=== PATIENT | female | born 1990 | race American Indian/Alaskan Native ===

== ENCOUNTER 2017-02-27 10:58 | Emergency (ER) | payer MEDICAID ==
[2017-02-27 10:58] VITALS: BMI 38.1
[2017-02-27 11:07] VITALS: TEMP 98
[2017-02-27 12:09] LABS: RBC URINE < 1 /hpf (0-3); URINE BILIRUBIN NEGATIVE (NEGATIVE); URINE BLOOD NEGATIVE (NEGATIVE); URINE COLOR Straw (YELLOW); URINE GLUCOSE (UA) NORMAL (Normal); URINE KETONE NEGATIVE (NEGATIVE); URINE LEUKOCYTE ESTERASE NEG Leu/uL (Negative); URINE PROTEIN NEGATIVE (NEGATIVE)
--- NOTE | 2017-02-27 12:43 | C.PDOC ---
History Of Present Illness 26 year old female, otherwise well, presents to the ED with complaints of abdominal pain for one week. Patient states when pain began it was constant, dull, cramping abdominal pain that was an 8/10 but has improved to be intermittent episodes at a 4/10 on arrival. Patient states she "feels heavy" in the lower abdomen and LMP was second week of January. Patient is tolerating PO. Patient denies fever, urine incontinence, dysuria, urinary symptoms, or other complaints at this time. Time Seen by Provider: 02/27/17 11:40 Chief Complaint (Nursing): Abdominal Pain History Per: Patient History/Exam Limitations: no limitations Onset/Duration Of Symptoms: Intermittent Episodes Current Symptoms Are (Timing): Still Present Severity: Mild Pain Scale Rating Of: 4 Location Of Pain/Discomfort: Other (lower abdomen ) Radiation Of Pain To:: None Quality Of Discomfort: Dull, Aching, Cramping Associated Symptoms: denies: Fever, Chills, Nausea, Vomiting Exacerbating Factors: None Alleviating Factors: None Recent travel outside of the [place]: No Abnormal Vaginal Bleeding: No Past Medical History Vital Signs: Last Vital Signs Temp 98.0 F 02/27/17 11:04 Pulse 78 02/27/17 12:47 Resp 16 02/27/17 12:47 BP 123/84 02/27/17 12:47 Pulse Ox 98 02/27/17 12:47 - [facility] MANUAL ASSIST BARBARA NEC (07/02/13) - Social History Hx Alcohol Use: No Hx Substance Use: No Review Of Systems Constitutional: Negative for: Fever, Chills Cardiovascular: Negative for: Chest Pain, Palpitations Respiratory: Negative for: Cough, Shortness of Breath Gastrointestinal: Positive for: Abdominal Pain. Negative for: Nausea, Vomiting , Diarrhea Physical Exam - Physical Exam Appears: Non-toxic, No Acute Distress Skin: Warm, Dry, No Rash Head: Atraumatic, Normacephalic, No Tenderness Eye(s): bilateral: Normal Inspection, PERRL, EOMI Oral Mucosa: Moist Neck: Supple Chest: Symmetrical, No Deformity Cardiovascular: Rhythm Regular, No Murmur Respiratory: No Rales, No Rhonchi, No Wheezing, Other (clear to auscultation bilaterally ) Gastrointestinal/Abdominal: Soft, Tenderness (right suprapubic tenderness ), No Guarding, No Rebound, Other (abdomen is bloated) Extremity: Normal ROM, No Tenderness Neurological/Psych: Oriented x3 ED Course And Treatment O2 Sat by Pulse Oximetry: 100 (RA) Pulse Ox Interpretation: Normal Progress Note: UA and UPreg were ordered. Patient was given Tylenol. Disposition Counseled Patient/Family Regarding: Studies Performed, Diagnosis, Need For Followup - Disposition Disposition: HOME/ ROUTINE Disposition Time: 12:42 Condition: STABLE Instructions: (ED) Forms: [facility] (Kazakh), General Discharge Instructions - POA Present On Arrival: None - Clinical Impression Clinical Impression: - Scribe Statement The provider has reviewed the documentation as recorded by the Scribe Raquel Flores All medical record entries made by the Scribe were at my direction and personally dictated by me. I have reviewed the chart and agree that the record accurately reflects my personal performance of the history, physical exam, medical decision making, and the department course for this patient. I have also personally directed, reviewed, and agree with the discharge instructions and disposition.
[2017-02-27 12:48] VITALS: BP 123/84; PULSE 78; RESP 16
[2017-02-27 13:08] VITALS: O2SAT 100
== END 2017-02-27 12:47 | disposition home or self-care (01) ==
LOC: C.ER 10:58
DX: O26.899 Other specified pregnancy related conditions, unspecified trimester (principal); Z3A.00 Weeks of gestation of pregnancy not specified

== ENCOUNTER 2017-04-06 07:28 | Day surgery (SDC) | payer MEDICAID ==
[2017-04-06 07:44] VITALS: BMI 35.9
[2017-04-06 08:14] LABS: BASO # 0.1 K/uL (0.0-0.2); BASO % 1.3 % (0.0-2.0); EOS # 0.2 K/uL (0.0-0.7); EOS % 2.3 % (0.0-4.0); HEMATOCRIT 41.3 % (34.0-47.0); LYMPH # 2.3 K/uL (1.0-4.3); MEAN CELL VOLUME 89.1 fL (81.0-99.0); MEAN CORPUSCULAR HEMOGLOBIN 30.9 pg (27.0-31.0); MEAN CORPUSCULAR HGB CONC 34.7 g/dL (33.0-37.0); MEAN PLATELET VOLUME 9.7 fL (7.2-11.7); MONO # 0.3 K/uL (0.0-0.8); MONO % 4.7 % (0.0-10.0); NRBC % 0.1 % (0.0-2.0); RED CELL DISTRIBUTION WIDTH 12.8 % (11.5-14.5)
--- NOTE | 2017-04-06 08:21 | C.PDOC ---
History Of Present Illness 26 year old female, , 8 weeks , presents to ED for evaluation of intermittent vaginal spotting for the past 2 weeks. Pt reports associated pelvic pain described as cramping. Denies n/v/d, back pain, urinary symptoms, or fever. Time Seen by Provider: 04/06/17 07:38 Chief Complaint (Nursing): Female Genitourinary History Per: Patient History/Exam Limitations: no limitations Onset/Duration Of Symptoms: Days (2 weeks) Current Symptoms Are (Timing): Still Present Quality Of Discomfort: Cramping Associated Symptoms: denies: Fever, Chills, Nausea, Vomiting, Diarrhea, Loss Of Appetite, Back Pain, Chest Pain, Constipation, Urinary Symptoms Alleviating Factors: None Recent travel outside of the [place]: No Additional History Per: Patient : 7 Para: 4 Past Medical History Reviewed: Historical Data, Nursing Documentation, Vital Signs Vital Signs: Last Vital Signs Temp 98.1 F 04/06/17 07:44 Pulse 86 04/06/17 07:44 Resp 20 04/06/17 07:44 BP 110/69 04/06/17 07:44 Pulse Ox 99 04/06/17 07:44 - [facility] MANUAL ASSIST DELIV NEC (07/02/13) Family History: States: Unknown Family Hx - Social History Hx Alcohol Use: No Hx Substance Use: No - Immunization History Hx Tetanus Toxoid Vaccination: Yes Hx Influenza Vaccination: Yes Hx Pneumococcal Vaccination: No Review Of Systems Except As Marked, All Systems Reviewed And Found Negative. Constitutional: Negative for: Fever, Chills Cardiovascular: Negative for: Chest Pain, Palpitations Respiratory: Negative for: Shortness of Breath Gastrointestinal: Negative for: Nausea, Vomiting, Diarrhea, Constipation Genitourinary: Positive for: Vaginal Bleeding (spotting), Pelvic Pain. Negative for: Dysuria, Frequency, Hematuria, Vaginal Discharge Musculoskeletal: Negative for: Back Pain Neurological: Negative for: Headache, Dizziness Physical Exam - Physical Exam Appears: Non-toxic, No Acute Distress Skin: Normal Color, Warm, Dry Head: Atraumatic, Normacephalic Eye(s): bilateral: Normal Inspection Nose: Normal Oral Mucosa: Moist Neck: Normal ROM, Supple Chest: Symmetrical Cardiovascular: Rhythm Regular Respiratory: Normal Breath Sounds, No Rales, No Rhonchi, No Wheezing Gastrointestinal/Abdominal: Soft, Tenderness (suprapubic), No Guarding, No Rebound Back: No CVA Tenderness Extremity: Normal ROM Neurological/Psych: Oriented x3, Normal Speech ED Course And Treatment - Laboratory Results Result Diagrams: 04/06/17 08:06 O2 Sat by Pulse Oximetry: 99 (RA) Pulse Ox Interpretation: Normal Progress Note: Blood work ordered and reviewed. Case discussed with Dr. Iraheta, patient's OBGYN, who requests admission. Disposition - Disposition Disposition: HOSPITALIZED - PA / WAFER SLICER / Resident Statement MD/DO has reviewed & agrees with the documentation as recorded. - Scribe Statement The provider has reviewed the documentation as recorded by the Scribe Patsy Plata All medical record entries made by the Anatoliyibshira were at my direction and personally dictated by me. I have reviewed the chart and agree that the record accurately reflects my personal performance of the history, physical exam, medical decision making, and the department course for this patient. I have also personally directed, reviewed, and agree with the discharge instructions and disposition.
--- NOTE | 2017-04-06 08:27 | C.PDOC ---
History Of Present Illness 26 year old female, , lmp 9/4, presents to ED for evaluation of intermittent vaginal spotting for the past 2 weeks. Pt reports associated pelvic pain described as cramping since termination on 03/16/17 . Denies n/v/d, back pain, urinary symptoms, or fever. Time Seen by Provider: 04/06/17 07:38 Chief Complaint (Nursing): Female Genitourinary History Per: Patient History/Exam Limitations: no limitations Onset/Duration Of Symptoms: Days (2 weeks) Current Symptoms Are (Timing): Still Present Quality Of Discomfort: Cramping Associated Symptoms: denies: Fever, Chills, Nausea, Vomiting, Diarrhea, Loss Of Appetite, Back Pain, Chest Pain, Constipation, Urinary Symptoms Alleviating Factors: None Recent travel outside of the [place]: No Additional History Per: Patient : 7 Para: 4 Past Medical History Reviewed: Historical Data, Nursing Documentation, Vital Signs Vital Signs: Last Vital Signs Temp 97.8 F 04/06/17 14:13 Pulse 68 04/06/17 14:13 Resp 16 04/06/17 14:13 BP 62/63 L 04/06/17 14:13 Pulse Ox 97 04/06/17 14:13 - [facility] MANUAL ASSIST DELIV NEC (07/02/13) Family History: States: Unknown Family Hx - Social History Hx Alcohol Use: No Hx Substance Use: No - Immunization History Hx Tetanus Toxoid Vaccination: Yes Hx Influenza Vaccination: Yes Hx Pneumococcal Vaccination: No Review Of Systems Except As Marked, All Systems Reviewed And Found Negative. Constitutional: Negative for: Fever, Chills Gastrointestinal: Positive for: Abdominal Pain. Negative for: Nausea, Vomiting , Diarrhea, Constipation Genitourinary: Positive for: Vaginal Bleeding (spotting), Pelvic Pain. Negative for: Dysuria, Frequency, Hematuria, Vaginal Discharge Musculoskeletal: Negative for: Back Pain Neurological: Negative for: Headache, Dizziness Physical Exam - Physical Exam Appears: Non-toxic, No Acute Distress Skin: Normal Color, Warm, Dry Head: Atraumatic, Normacephalic Eye(s): bilateral: Normal Inspection, EOMI Nose: Normal Oral Mucosa: Moist Neck: Normal ROM, Supple Chest: Symmetrical Cardiovascular: Rhythm Regular Respiratory: Normal Breath Sounds, No Rales, No Rhonchi, No Wheezing Gastrointestinal/Abdominal: Soft, Tenderness (suprapubic), No Guarding, No Rebound Back: No CVA Tenderness Extremity: Normal ROM Neurological/Psych: Oriented x3, Normal Speech ED Course And Treatment - Laboratory Results Result Diagrams: 04/06/17 08:06 O2 Sat by Pulse Oximetry: 99 (RA) Pulse Ox Interpretation: Normal Progress Note: Blood work ordered and reviewed. Case discussed with Dr. Iraheta, patient's OBGYN, who requests admission for r/o retained products. Disposition - Disposition Disposition: HOSPITALIZED Disposition Time: 10:00 Condition: STABLE - Clinical Impression Clinical Impression: Retained products of conception - PA / FOREST WORKER / Resident Statement MD/DO has reviewed & agrees with the documentation as recorded. - Scribe Statement The provider has reviewed the documentation as recorded by the Scribe Patsy Plata All medical record entries made by the Scribe were at my direction and personally dictated by me. I have reviewed the chart and agree that the record accurately reflects my personal performance of the history, physical exam, medical decision making, and the department course for this patient. I have also personally directed, reviewed, and agree with the discharge instructions and disposition.
--- NOTE | 2017-04-06 10:13 | CP.PCM.HP ---
History of Present Illness - History of Present Illness History of Present Illness: 26 yr lmp 9/4 had a termination on 03/16/17 in [facility] came with c/o vb and cramping since than. pt had blood test 03/29 8312. obgyn 1 x , 2 x ta, 1 sab pmh denies med pnv all nkda psh d&c soch den abs efrem,noon tender sse mod blood pelvic exam ext gen old blood, cervix dil, ut anteverted b hcg Present on Admission - Present on Admission Any Indicators Present on Admission: No History of DVT/PE: No History of Uncontrolled Diabetes: No Urinary Catheter: No Past Patient History - Past Social History Smoking Status: Never Smoked - PSYCHIATRIC Hx Substance Use: No - SURGICAL HISTORY Hx Surgeries: No - ANESTHESIA Hx Anesthesia: No Meds Allergies/Adverse Reactions: Allergies Allergy/AdvReac Type Severity Reaction Status Date / Time No Known Allergies Allergy Verified 04/06/17 07:42 Physical Exam - Exam External exam: NORMAL EXTERNAL EXAM Speculum exam: NORMAL SPECULUM EXAM, Vaginal Bleeding Bimanual exam: NORMAL BIMANUAL EXAM Results - Vital Signs Recent Vital Signs: Last Vital Signs Temp 98.1 F 04/06/17 07:44 Pulse 86 04/06/17 07:44 Resp 20 04/06/17 07:44 BP 110/69 04/06/17 07:44 Pulse Ox 99 04/06/17 08:26 - Labs Result Diagrams: 04/06/17 08:06 Labs: Laboratory Results - last 24 hr 04/06/17 04/06/17 04/06/17 08:06 08:06 08:06 WBC 7.0 RBC 4.64 Hgb 14.4 D Hct 41.3 MCV 89.1 D MCH 30.9 MCHC 34.7 RDW 12.8 Plt Count 194 MPV 9.7 Neut % (Auto) 58.7 Lymph % (Auto) 33.0 Rice % (Auto) 4.7 Eos % (Auto) 2.3 Baso % (Auto) 1.3 Neut # 4.1 Lymph # 2.3 Rice # 0.3 Eos # 0.2 Baso # 0.1 Beta HCG, Quant 838.17 Blood Type O POSITIVE Antibody Screen Negative Assessment & Plan - Assessment and Plan (Free Text) Assessment: 26 yr with retained products Plan: plan admit to physicist nuclear suction d&c npo/ivf labs informed consent r/a/b disc - Date & Time Date: 04/06/17 Time: 10:00
[2017-04-06] MEDS ORDERED: cefOXitin IV 1 gm in Dextrose 1 GM/50 ML BAG IVPB ONE (10:51)
[2017-04-06] MEDS ORDERED: Oxytocin 20 units in LR 0 ML IV ONE (10:51)
[2017-04-06] MEDS ORDERED: Lactated Ringer's 1,000 ML IV ONE (10:55)
[2017-04-06] MEDS ORDERED: Propofol 10 mg/ml Inj (20 ML) ONE (11:05)
[2017-04-06] MEDS ORDERED: Lactated Ringer's 1,000 ML IV SCH (11:30)
[2017-04-06 13:49] VITALS: RESP 16
[2017-04-06 14:19] VITALS: BP 62/63; PULSE 68; TEMP 97.8
[2017-04-06 16:00] VITALS: O2SAT 99
--- NOTE | 2017-04-06 16:49 | PCM.SURG1 ---
Surgeon's Initial Post Op Note - Surgeon's Notes Surgeon: dr castro Residential Subcontractor: none Type of Anesthesia: General LMA Anesthesia Administered By: dr hannah Pre-Operative Diagnosis: retained products Operative Findings: see the op reort Post-Operative Diagnosis: same Operation Performed: suction d&c Specimen/Specimens Removed: poc Estimated Blood Loss: EBL {In ML}: 20 Blood Products Given: N/A Drains Used: No Drains Post-Op Condition: Good Date of Surgery/Procedure: 04/06/17 Time of Surgery/Procedure: 11:00
--- NOTE | 2017-04-07 01:18 | OP ---
PROCEDURE DATE: PREOPERATIVE DIAGNOSIS: A 26-year-old 5, para 1 with retained product. POSTOPERATIVE DIAGNOSIS: A 26 years old 5, para 1 with retained product. SURGEON: Vipin Iraheta MD. INDEPENDENT LIVING INSTRUCTOR: None. ANESTHESIA: General anesthesia. ANESTHESIOLOGIST: Dr. Street. COMPLICATIONS: None. ESTIMATED BLOOD LOSS: 20 mL. PROCEDURE PERFORMED: Suction dilation and curettage. DESCRIPTION OF PROCEDURE: After informed consent was obtained, the patient was brought to the operating room, placed on the table where general anesthesia was given. When anesthesia was found to be sufficient, she was prepped and draped in normal sterile fashion. Examination found the uterus to be of 7 weeks' size. No pelvic or adnexal masses. Anterior lip of the cervix was grasped with a tenaculum. Gentle dilatation of the cervix was done. A 6-Mauritian triple lumen was used for suction and then 7-Mauritian was used. Sharp curettage was done. Normal products were coming out. Product was sent for pathology. Tenaculum was taken out of the anterior lip of the cervix. The patient tolerated the procedure well. Lap, sponge, and instrument counts were correct x2. Vipin Iraheta MD
== END 2017-04-06 14:18 | disposition home or self-care (01) ==
LOC: C.ER 07:28 → C.SDS 08:02
PROVIDERS: ATTEND Obstetrics & Gynecology
DX: O03.4 Incomplete spontaneous abortion without complication (principal)
CPT/HCPCS: 36415; 59812; 84702; 85025; 86850; 86900; 88305; 99284; J0694; J2704; J3010; J7120

== ENCOUNTER 2018-07-03 05:59 | Day surgery (SDC) | payer MEDICAID ==
[2018-07-01 14:14] VITALS: BMI 38.7
[2018-07-03] MEDS ORDERED: ceFOXitin IV 1 gm/100 ml in NS 0 GM/0 ML BAG ONE (07:35)
[2018-07-03] MEDS ORDERED: Propofol 10 mg/ml Inj (20 ML) ONE ×2 (07:43→08:05)
[2018-07-03] MEDS ORDERED: Midazolam 2 MG/2 ML VIAL ONE ×2 (07:44→08:55)
[2018-07-03] MEDS ORDERED: HYDROmorphone 0.5 mg/0.5 ml ISec IVP PRN (07:44)
[2018-07-03] MEDS ORDERED: Oxytocin 20 units in LR 0 ML IV ONE (07:59)
[2018-07-03 08:30] VITALS: TEMP 97.1
[2018-07-03 10:28] VITALS: BP 112/59; PULSE 70; RESP 13; O2SAT 96
--- NOTE | 2018-07-03 19:49 | OP ---
PROCEDURE DATE: 07/03/2018 PREOPERATIVE DIAGNOSIS: A 27-year-old 8, para 4 with missed . POSTOPERATIVE DIAGNOSIS: A 27-year-old 8, para 4 with missed . PROCEDURE: Suction dilatation and curettage SURGEON: Vipin Iraheta MD TYPE OF ANESTHESIA: General anesthesia. ANESTHESIOLOGIST: Romeo Paul DO COMPLICATIONS: None. ESTIMATED BLOOD LOSS: 20 mL. DESCRIPTION OF PROCEDURE: After informed consent was obtained, the patient was brought to the operating room and placed on the table, where general anesthesia was given. Once the anesthesia was given, the patient was prepped and draped in normal sterile fashion. Examination of the uterus revealed it to be six weeks' size. No pelvic or adnexal masses. Anterior lip of the cervix was grasped with a tenaculum. Gentle dilatation of the cervix was done. A 7-Nigerien flexible was used for suction. Sharp curettage was done was found and the tissue was sent to pathology . After that, the suction was done again and the tenaculum was taken out. The patient tolerated the procedure well. Lap, sponge and instrument counts were correct x2. Vipin Iraheta MD
== END 2018-07-03 11:28 | disposition home or self-care (01) ==
LOC: C.SDS 05:59
PROVIDERS: ATTEND Obstetrics & Gynecology
DX: O02.1 Missed abortion (principal)
CPT/HCPCS: 59820; 88233; 88262; 88305; J1885; J2001; J2250; J2405; J2704; J3010; J7120